=== PATIENT | female | born 1955 | race Caucasian/White ===

== ENCOUNTER 2019-10-30 01:45 | Emergency (ER) | payer OTHER, SELFPAY ==
[2019-10-30 01:46] VITALS: BP 190/85; PULSE 110; RESP 16; TEMP 36.4; O2SAT 100
[2019-10-30 02:15] LABS: Basophils Absolute Auto 0.1 K/mm3 (0.0-0.1); Basophils Percent Auto 0.5 % (0.2-1.2); Eosinophils Absolute Auto 0.2 K/mm3 (0-0.3); Eosinophils Percent Auto 1.8 % (0-4.4); Hematocrit 50.1 % (37.0-47.0); Hemoglobin 16.4 g/dL (12.0-15.0); Immature Granulocyte Absolute 0.26 K/mm3 (0.00-0.031); Lymphocytes Absolute Auto 2.43 K/mm3 (0.9-3.2); Mean Corpuscular HGB Conc 32.7 g/dl (32-36); Mean Corpuscular Volume 97.7 fl (80-100); Mean Platelet Volume 11.3 fl (7.4-10.4); Monocytes Absolute Auto 0.7 K/mm3 (0.1-0.6); Monocytes Percent Auto 5.8 % (2.6-8.5); Neutrophils Absolute Auto 9.1 K/mm3 (1.3-6.7); Neutrophils Percent Auto 70.9 % (45.5-73.1); Platelet Count Result 260 k/mm3 (150-375); Red Blood Count 5.13 M/mm3 (4.2-5.4); Red Cell Distribution Width 16.4 % (11.5-14.5); White Blood Count 12.8 K/mm3 (4.5-10.0)
[2019-10-30 02:29] LABS: Add Urine Microscopic? YES; Appearance Urine Clear (Clear); Bilirubin Urine Negative (Negative); Blood Urine Negative (Negative); Color Urine Yellow (Yellow); Glucose Urine UA Negative (Negative); Ketones Urine Negative (Negative); Leukocyte Esterase Ur Trace LEU/UL (Negative); Mucus Urine Rare /lpf; Nitrate Urine Negative (Negative); Protein Urine Negative (Negative); RBC Urine 0-2 /hpf (0-2); Specific Grav Ur 1.018 (1.001-1.035); Squamous Epithelial Cell Urine Occasional /hpf (Few); Urobilinogen Urine Negative mg/dL (<2.0); WBC Urine 0-3 /hpf
[2019-10-30 02:31] LABS: Anion Gap 8 mmol/L (8-16); Blood Urea Nitrogen 19 mg/dL (7-17); Calcium 9.7 mg/dL (8.4-10.2); Carbon Dioxide 28 mmol/L (22-30); Chloride 103 mmol/L (98-107); Estimated Glomerular Filt Rate > 60; Glucose 111 mg/dL (65-105); Sodium 139 mmol/L (137-145)
[2019-10-30 03:18] VITALS: BP 156/79; PULSE 94; RESP 19; O2SAT 95
--- NOTE | 2019-10-30 03:49 | ED.GENADULT ---
HPI - General Adult General Chief complaint: Abdominal Pain Stated complaint: low back pain Time Seen by Provider: 10/30/19 02:23 History of Present Illness HPI narrative: Patient is a 63-year-old female who presents ER with some pain in her right lower chest wall/upper abdomen. Ongoing for 3 days worsening today. No fevers or chills or sweats. No radiation. Worse with twisting. Has not tried any pain medication. She is without any urinary frequency or urgency. She has had no nausea or vomiting. No known injury. Related Data Home Medications Medication Instructions Recorded Confirmed amlodipine 5 mg PO DAILY 10/30/19 10/30/19 atorvastatin 10 mg PO QPM 10/30/19 10/30/19 bupropion HCl 150 mg PO DAILY 10/30/19 10/30/19 losartan 100 mg PO DAILY 10/30/19 10/30/19 Allergies Allergy/AdvReac Type Severity Reaction Status Date / Time adhesive tape Allergy Mild TRANSPORE Verified 06/26/19 10:47 TAPE lisinopril Allergy Unknown Verified 06/26/19 10:47 procaine Allergy Unknown resistant Verified 06/26/19 10:47 Review of Systems Constitutional: Constitutional: Denies chills and Denies fever(s) Cardiovascular: Cardiovascular: Denies chest pain and Denies radiating jaw, neck or arm pain Respiratory: Respiratory: Denies cough and Denies dyspnea Gastrointestinal: Gastrointestinal: Reports abdominal pain, Denies nausea and Denies vomiting Musculoskeletal: Musculoskeletal: Denies muscle cramps PMFSH Past Medical History Medical History (Updated 10/30/19 @ 03:53 by Manpreet Gary MD) Hypertension Surgical History Surgical History (Updated 10/30/19 @ 03:51 by Manpreet Gary MD) No pertinent past surgical history Social History Social History (System 06/26/19 @ 10:47 by Mauro Waddell) Smoking status: Heavy tobacco smoker Alcohol intake: current Exam Narrative: Exam Narrative: GENERAL: Well-appearing, well-nourished, and in no acute distress. HEAD: Normocephalic, atraumatic. CHEST: Clear to auscultation. No respiratory distress. TTP to right lateral/lower chest wall. HEART: Regular rate and rhythm. Normal peripheral pulses. ABDOMEN: Soft, nontender, nondistended. EXTREMITIES: Normal range of motion. No edema. NEURO: Alert and oriented x3. PSYCH: Normal mood and affect. Course Course Emergency Course: Pain resolved with [place]is. Informed results. Discharge home. Vital Signs Vital signs: Vital Signs Temperature 97.6 F 10/30/19 01:46 Pulse Rate 110 H 10/30/19 01:46 Respiratory Rate 16 10/30/19 01:46 Blood Pressure 190/85 H 10/30/19 01:46 Pulse Oximetry 100 10/30/19 01:46 Temperature 97.6 F 10/30/19 01:46 Pulse Rate 94 10/30/19 03:18 Respiratory Rate 19 10/30/19 03:18 Blood Pressure 156/79 H 10/30/19 03:18 Pulse Oximetry 95 10/30/19 03:18 Medical Decision Making Vital Signs Vital Signs: Vital Signs Temperature 97.6 F 10/30/19 01:46 Pulse Rate 110 H 10/30/19 01:46 Respiratory Rate 16 10/30/19 01:46 Blood Pressure 190/85 H 10/30/19 01:46 Pulse Oximetry 100 10/30/19 01:46 Temperature 97.6 F 10/30/19 01:46 Pulse Rate 94 10/30/19 03:18 Respiratory Rate 19 10/30/19 03:18 Blood Pressure 156/79 H 10/30/19 03:18 Pulse Oximetry 95 10/30/19 03:18 Lab Data Result diagrams: 10/30/19 01:56 10/30/19 01:56 Labs: Lab Results 10/30/19 10/30/19 10/30/19 Range/Units 01:56 01:56 02:09 WBC 12.8 H (4.5-10.0) K/mm3 RBC 5.13 (4.2-5.4) M/mm3 Hgb 16.4 H (12.0-15.0) g/dL Hct 50.1 H (37.0-47.0) % MCV 97.7 (80-100) fl MCH 32.0 (26-34) pg MCHC 32.7 (32-36) g/dl RDW 16.4 H (11.5-14.5) % Plt Count 260 (150-375) k/mm3 MPV 11.3 H (7.4-10.4) fl Immature Gran % (Auto) 2.0 H (0-0.5) % Neut % (Auto) 70.9 (45.5-73.1) % Lymph % (Auto) 19.0 (18.3-44.2) % Cat[place] % (Auto) 5.8 (2.6-8.5) % Eos % (Auto) 1.8 (0-4.4) % Baso % (Auto) 0.5
[2019-10-30 03:55] VITALS: BP 144/76; PULSE 88; RESP 18; O2SAT 95
[2019-10-30 03:56] VITALS: BP 144/76; PULSE 89; RESP 19; TEMP 36.3; O2SAT 95
== END 2019-10-30 04:01 | disposition home or self-care (01) ==
PROVIDERS: Emergency Provider Emergency Medicine; PCP Student in an Organized Health Care Education/Training Program
DX: S29.011A Strain of muscle and tendon of front wall of thorax, initial encounter (principal); X58.XXXA Exposure to other specified factors, initial encounter
CPT/HCPCS: 36415; 80048; 81001; 85025; 99283; A9270

== ENCOUNTER 2021-11-29 17:16 | Emergency (ER) | payer OTHER, SELFPAY ==
--- NOTE | 2021-11-29 17:19 | ED.URI ---
HPI - URI/Sore Throat General Chief Complaint: Upper Respiratory Infection Stated Complaint: uri Time Seen by Provider: 11/29/21 17:19 Source: patient Mode of arrival: ambulatory Limitations: no limitations History of Present Illness HPI Narrative: Ms. Guidry is a 66-year-old female patient presenting to the clinic today with complaints of headache, nasal congestion and sinus pressure. She reports this is been ongoing for 3 to 4 days. States that she has been taking Sudafed for her symptoms and this is making her blood pressure higher but is not seeming to help the pressure. She reports she is blowing out clear nasal drainage. She denies any fever or chills. She denies any known exposure to anybody with COVID, flu, or strep. MD elicited complaint: sore throat and nasal congestion Related Data Home Medications Medication Instructions Recorded Confirmed amlodipine 5 mg tablet 5 mg PO DAILY 10/30/19 11/29/21 atorvastatin 10 mg tablet 10 mg PO QPM 10/30/19 11/29/21 bupropion HCl 150 mg 24 hr tablet, 150 mg PO DAILY 10/30/19 11/29/21 extended release losartan 100 mg tablet 100 mg PO DAILY 10/30/19 11/29/21 albuterol sulfate 90 mcg/actuation 2 puff inhalation DIRECTED 11/29/21 11/29/21 aerosol inhaler Allergies Allergy/AdvReac Type Severity Reaction Status Date / Time adhesive tape Allergy Mild TRANSPORE Verified 11/29/21 17:38 TAPE lisinopril Allergy Unknown Other Verified 11/29/21 17:38 procaine Allergy Unknown resistant Verified 11/29/21 17:38 Review of Systems Review of Systems: Pertinent positives per HPI. Patient denies any fever, chills, rash, visual changes, dizziness, cough, sore throat, shortness of breath, chest pain, palpitations, nausea, vomiting, diarrhea, constipation, abdominal pain, or any urinary issues. [facility] Past Medical History Medical History Hypertension Surgical History Surgical History No pertinent past surgical history Social History Social History Smoking status: Heavy tobacco smoker Alcohol intake: current Comments At the time of my signature, I reviewed and agree with the nursing past medical, surgical, social, and family history. There is no relevant family history pertinent to the patient complaint. Exam Narrative: General: Well-developed, well nourished, in no apparent distress Head: Normocephalic, atraumatic Eyes: Pupils equally round and reactive to light bilaterally, EOM intact, sclera and conjunctive clear, no discharge, lids normal Ears: TMs intact and clear, ear canals clear, no drainage, grossly hearing normal. Nose: Nares patent, clear nasal discharge, moderate inflammation, maxillary and frontal sinus tenderness. Mouth: Oral pharynx without lesions or masses, good dentition, MMM. Postnasal drip Neck: Supple, trachea midline, no enlargement of anterior or posterior cervical nodes, no thyroid masses or goiter palpable. Cardio: Regular rate and rhythm, s1 and s2 normal, no murmur appreciated. Resp: Clear to auscultation bilaterally, no rhonchi, rales, wheezing or rubs Course Course Emergency Course: Portions of this record may have been created with voice recognition software. Level of Care: Express Care Visit Vital Signs Vital signs: Vital signs reviewed MDM - URI/Sore Throat MDM Narrative Medical decision making narrative: At the time of visit patient is resting comfortably on the exam table. COVID swab was obtained and was negative in the clinic. I suspect the patient has upper respiratory infection/sinusitis. Prescription for prednisone was sent to the pharmacy and supportive measures were discussed with the patient she voiced understanding of discharge instructions and agrees to treatment plan. She is to discontinue the Sudafed use. Differential Diagnosi
[2021-11-29 17:26] VITALS: BP 189/95; PULSE 114; RESP 16; TEMP 37.4; O2SAT 98
== END 2021-11-29 17:55 | disposition home or self-care (01) ==
PROVIDERS: Emergency Provider Nurse Practitioner Family; PCP Student in an Organized Health Care Education/Training Program
DX: J32.9 Chronic sinusitis, unspecified (principal); Z20.822 Contact with and (suspected) exposure to COVID-19; I10 Essential (primary) hypertension; F17.200 Nicotine dependence, unspecified, uncomplicated
CPT/HCPCS: 87426; 99213; C9803; G0463

== ENCOUNTER 2022-06-04 12:00 | Observation (INO) | payer OTHER, SELFPAY ==
[2022-06-04] VITALS (14 sets, daily range): BP systolic 130–182; BP diastolic 68–99; PULSE 92–114; RESP 17–20; TEMP 36.8–37.1; O2SAT 87–98; BMI 37.4
--- NOTE | ~2022-06-04 | XR_ITS ---
EXAMINATION: XR chest 2V DATE: 06/04/2022 12:35 INDICATION: Palpitations. TECHNIQUE: Frontal and lateral views of the chest were obtained. COMPARISON: Chest 2 views 03/26/2018, chest CT 04/24/2011 FINDINGS: The chest demonstrates clear lungs without pneumonia, pleural effusion, or pneumothorax. Th e heart size is normal. Calcified mediastinal lymph nodes are consistent with old granulomatous disea se. IMPRESSION: 1. No acute cardiopulmonary disease. Reviewed, dictated and finalized at location A.
--- NOTE | ~2022-06-04 | CT_ITS ---
EXAMINATION: CTA chest PE protocol DATE: 06/04/2022 14:03 INDICATION: Shortness of breath. TECHNIQUE: Computed tomography angiography (CTA) of the chest was performed with 100 mL Omnipaque-350 intravenous contrast timed to evaluate the pulmonary arteries. Coronal maximum intensity projection 3D-reconstructions were created by the technologist. Automated exposure control and iterative reconst ruction technique were employed. The dose-length product was 779.43 mGy-cm. COMPARISON: Chest CT 04/24/2011 FINDINGS: There is mild emphysema. There is mild atelectasis in right middle lobe and lingula. Calcif ied left lung nodules and calcified left hilar and mediastinal lymph nodes are consistent with old gr anulomatous disease. No pleural effusion. The heart size is normal. No pericardial effusion. Calcific ations in the spleen are consistent with old granulomatous disease. There is mild thoracic spondylosi s. IMPRESSION: 1. No pulmonary embolus. Sensitivity is mildly decreased by motion artifact. 2. Mild emphysema. Reviewed, dictated and finalized at location A.
--- NOTE | 2022-06-04 12:03 | ECG_ITS ---
Measurements Intervals [place] Rate: 112 P: 67 MN: 162 QRS: -35 QRSD: 88 T: 73 QT: 315 QTc: 430 Interpretive Statements SINUS TACHYCARDIA POSSIBLE RIGHT ATRIAL ENLARGEMENT [0.25mV P WAVE] MARKED LEFT AXIS DEVIATION [QRS AXIS < -30] NO PREVIOUS ECG AVAILABLE FOR COMPARISON Electronically Signed On 06-05-2022 14:56:05 CDT by Renato Mccormick M.D.
[2022-06-04] MEDS: ASPIRIN 81 MG CHEWABLE TABLET 324 MG PO (13:04)
--- NOTE | 2022-06-04 13:23 | PC.NURSE ---
Pt placed on 2 L NC O2 due to 88% on room air.
[2022-06-04 13:26] LABS: Basophils Absolute Auto 0.1 K/mm3 (0.0-0.1); Basophils Percent Auto 0.5 % (0.2-1.2); Eosinophils Absolute Auto 0.1 K/mm3 (0-0.3); Eosinophils Percent Auto 0.6 % (0-4.4); Hematocrit 53.1 % (37.0-47.0); Hemoglobin 17.2 g/dL (12.0-15.0); Immature Granulocyte Absolute 0.19 K/mm3 (0.00-0.031); Immature Granulocyte Percent A 1.1 % (0-0.5); Lymphocytes Absolute Auto 2.78 K/mm3 (0.9-3.2); Lymphocytes Percent Auto 15.7 % (18.3-44.2); Mean Corpuscular HGB Conc 32.4 g/dl (32-36); Mean Corpuscular Hemoglobin 31.5 pg (26-34); Mean Corpuscular Volume 97.3 fl (80-100); Mean Platelet Volume 11.2 fl (7.4-10.4); Monocytes Absolute Auto 0.9 K/mm3 (0.1-0.6); Monocytes Percent Auto 4.8 % (2.6-8.5); Neutrophils Absolute Auto 13.7 K/mm3 (1.3-6.7); Neutrophils Percent Auto 77.3 % (45.5-73.1); Platelet Count Result 285 k/mm3 (150-375); Red Blood Count 5.46 M/mm3 (4.2-5.4); Red Cell Distribution Width 14.9 % (11.5-14.5); White Blood Count 17.7 K/mm3 (4.5-10.0)
[2022-06-04 13:33] LABS: Partial Thromboplastin Time 25.4 SECONDS (22.3-36.8); Prothrombin Time 12.7 Seconds (11.1-14.7)
[2022-06-04 13:36] LABS: Alanine Aminotransferase 44 U/L (6-35); Albumin Level 4.5 g/dL (3.5-5.1); Alkaline Phosphatase 88 U/L (38-126); Anion Gap 5 mmol/L (8-16); Aspartate Amino Transferase 27 U/L (14-36); Bilirubin,Total 0.5 mg/dL (0.2-1.3); Blood Urea Nitrogen 25 mg/dL (7-17); Calcium 9.6 mg/dL (8.4-10.2); Carbon Dioxide 36 mmol/L (22-30); Chloride 98 mmol/L (98-107); Estimated CRCL calculation 80 ml/min; Estimated Glomerular Filt Rate > 60; Glucose 163 mg/dL (65-110); Lipase 70 U/L (23-300); Potassium 3.7 mmol/L (3.4-5.0); Sodium 139 mmol/L (137-145)
--- NOTE | 2022-06-04 13:41 | ED.ARRPALP ---
HPI - Arrhythmia/Palpitations General Chief Complaint: Arrhythmia/Palpitations Stated Complaint: palpitations Time Seen by Provider: 06/04/22 13:40 Source: patient and family Mode of arrival: ambulatory Limitations: no limitations History of Present Illness HPI narrative: Patient is 66 years old white female presented to the ED with shortness of breath on exertion and palpitation, feeling her heart is racing over the last 48 hours. Patient is a heavy smoker for over 40 years. Patient denies increased the frequency of coughing and or THE amount of sputum lately.. She denies any fever, chills, nausea, vomiting. Patient denies any chest pain or leg pain Related Data Home Medications Medication Instructions Recorded Confirmed amlodipine 5 mg tablet 5 mg PO DAILY 10/30/19 11/29/21 atorvastatin 10 mg tablet 10 mg PO QPM 10/30/19 11/29/21 bupropion HCl 150 mg 24 hr tablet, 150 mg PO DAILY 10/30/19 11/29/21 extended release losartan 100 mg tablet 100 mg PO DAILY 10/30/19 11/29/21 albuterol sulfate 90 mcg/actuation 2 puff inhalation DIRECTED 11/29/21 11/29/21 aerosol inhaler Allergies Allergy/AdvReac Type Severity Reaction Status Date / Time adhesive tape Allergy Mild TRANSPORE Verified 06/04/22 13:01 TAPE lisinopril Allergy Unknown Other Verified 06/04/22 13:01 procaine Allergy Unknown resistant Verified 06/04/22 13:01 Review of Systems Review of Systems: All systems reviewed & are unremarkable except as noted in HPI and below PMFSH Past Medical History Medical History Hypertension Surgical History Surgical History No pertinent past surgical history Social History Social History Smoking status: Heavy tobacco smoker Alcohol intake: current Exam Narrative: General appearance: Well-developed, well-nourished, nasal cannula on, 2 L. Skin: Normal color Head: Normocephalic, nontraumatic Eyes: Clear conjunctiva ENT: Oropharynx normal, ears normal, nose normal Neck: Supple, nontender Chest and respiratory: Marked diminution of air entry bilaterally, expiratory wheezing Heart: Regular rate/rhythm Abdomen: Soft, nontender, no organomegaly, quiet bowel sounds Vascular: Normal peripheral pulses, normal capillary refill. Musculoskeletal: Normal range of motion, nontender back Neurologic: Alert and oriented ?3, MEDICAL ASSOCIATE is normal as tested, no gross motor deficit Course Vital Signs Vital signs: Vital Signs Temperature 37.1 C 06/04/22 12:45 Pulse Rate 114 H 06/04/22 12:45 Respiratory Rate 18 06/04/22 12:45 Blood Pressure 182/88 H 06/04/22 12:45 Pulse Oximetry 87 L 06/04/22 12:45 Oxygen Delivery Room Air 06/04/22 12:45 Temperature 37.1 C 06/04/22 12:45 Pulse Rate 112 H 06/04/22 13:03 Respiratory Rate 20 06/04/22 13:02 Blood Pressure 136/91 H 06/04/22 13:02 Pulse Oximetry 88 L 06/04/22 13:23 Oxygen Delivery Room Air 06/04/22 13:02 MDM - Arrhythmia/Palpitations Lab Data 06/04/22 13:06 06/04/22 13:06 Labs: Lab Results 06/04/22 06/04/22 06/04/22 Range/Units 13:06 13:06 13:06 WBC 17.7 H (4.5-10.0) K/mm3 RBC 5.46 H (4.2-5.4) M/mm3 Hgb 17.2 H (12.0-15.0) g/dL Hct 53.1 H (37.0-47.0) % MCV 97.3 (80-100) fl MCH 31.5 (26-34) pg MCHC 32.4 (32-36) g/dl RDW 14.9 H (11.5-14.5) % Plt Count 285 (150-375) k/mm3 MPV 11.2 H (7.4-10.4) fl Immature Gran % (Auto) 1.1 H (0-0.5) % Neut % (Auto) 77.3 H (45.5-73.1) % Lymph % (Auto) 1
[2022-06-04 13:48] LABS: Troponin I < 0.012 ng/mL (0.000-0.034)
--- NOTE | 2022-06-04 13:55 | PC.NURSE ---
Pt to CT scan via stretcher at this time.
[2022-06-04 14:08] LABS: NT Pro B Type Natriuretic Pept 40 pg/mL (19.9-100)
[2022-06-04 14:19] LABS: Alveolar/Arterial O2 Gradient 77.7 mmHg; Base Excess ABG 4.2 mEq/l (+/-2.0); Fractional Inspired Oxygen 28 %; HCO3 ABG 29.4 mEq/l (22.0-26.0); Oxygen Saturation ABG 94.1 % (95.0-100.0); PCO2 ABG 45.3 mmHg (35.0-45.0); PO2 ABG 68.5 mmHg (80.0-100.0); PO2 FiO2 Ratio Arterial Blood 2.45 %; Total Hemoglobin 17.1 g/dL (12.0-18.0)
[2022-06-04 14:21] LABS: Device NASAL CANNULA; Modified Allen's Test Pass; Oxyhemoglobin 87.3 % THb (90.0-100.0); Site Drawn LEFT RADIAL
[2022-06-04] MEDS: methylPREDNISolone SOD SUCC 125 MG VIAL IV PUSH (14:31)
[2022-06-04] MEDS: IPRATROPIUM BR 0.02% INH SOLN 0.5 MG/2.5 ML VIAL INHALATION ×2 (14:49→19:55)
[2022-06-04] MEDS: ALBUTEROL SULFATE NEB 2.5 MG/3 ML INH INHALATION (14:49)
--- NOTE | 2022-06-04 15:21 | PM.IMHP ---
H&P: HPI History of Present Illness Date/Time: 06/04/22 15:21 Chief Complaint: Arrhythmia palpitations Narrative: This is a 66-year-old female patient who came to the emergency room with shortness of breath on exertion and palpitations. The patient stated that she felt like her heart was racing for the last 48 hours. The patient has been a heavy smoker for the last 40 years. She has not been diagnosed with COPD and has not had a pulmonary function test. The patient does not wear oxygen at home. The patient is attempting to cut down on cigarettes. She went from 1 pack a cigarettes to half a pack a cigarettes and has been coughing more lately. She has had a thick green sputum. She denies any fever chills. Her O2 saturation was 88%. The patient was placed on oxygen at 2 L per nasal cannula. Her white count was noted to be 17.7. H&H is 17.2 and 33.1. Neutrophil percentage 77.3. Her Oxy hemoglobin is 87.3. First troponin is nonreactive. Chest x-ray was read as no acute cardiopulmonary disease. CTA was read as no pulmonary embolism. Sensitivity is mildly decreased by motion artifact. Mild emphysema. Chest x-ray no acute cardiopulmonary disease. The patient is afebrile. The patient was given aspirin, Solu-Medrol, and nebulizer treatments. The patient is being admitted to observation status on the date of service of 06/04/2022. Review of Systems Review of Systems: All systems reviewed & are unremarkable except as noted in HPI and below Constitutional: Constitutional: Reports as per HPI and Reports no additional constitutional complaints Eyes: Eyes: Reports as per HPI and Reports no additional eye complaints ENT: Reports system reviewed and no additional complaints, except as documented and Reports Normal hearing present Cardiovascular: Cardiovascular: Reports no additional cardiovascular complaints Respiratory: Respiratory: Reports no additional respiratory complaints and Reports no additional respiratory complaints Gastrointestinal: Gastrointestinal: Reports as per HPI and Reports no additional gastrointestinal complaints Musculoskeletal: Musculoskeletal: Reports no additional musculoskeletal complaints Integumentary/Breasts: Skin/Breast: Reports system reviewed and no additional complaints, except as docu and Reports as per HPI Neurologic: Reports system reviewed and no additional complaints, except as documented, Reports as per HPI and Reports Normal hearing present Psychiatric: Psychiatric: Reports no additional psychiatric complaints and Reports as per HPI Endocrine: Endocrine: Reports no additional endocrine complaints Hematologic/Lymphatic: Hematologic/Lymphatic: Reports no additional hematologic/lymphatic complaints Allergic/Immunologic: Allergic/Immunologic: Reports no additional allergic/immunologic complaints [facility] Past Medical History Medical History (Updated 06/04/22 @ 18:42 by Emili Amaya NP) Emphysema lung Hyperlipidemia Hypertension Hypolipidemia Hypoxia Tobacco abuse Surgical History Surgical History (Updated 06/04/22 @ 18:40 by Emili Amaya NP) H/O section times 2 H/O: hysterectomy S/P right rotator cuff repair Family History Family History (Updated 06/04/22 @ 18:35 by Emili Amaya NP) Father Cancer Mother Cancer Sibling Cancer Social History Social History (Updated 06/04/22 @ 18:36 by Emili Amaya NP) Social History: 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 She told me that she smoked 4-5 cigarettes a day, however she told the nurse that she is down to half a pack a cigarettes a day. She has 2 children. Her is the durable power exercise physiologist certified for healthcare. Code status full code Smoking packs per day: 0.5 Smoking cigarettes per day: 10.0 Years smoked: 40 Smoking pack-years: 20.00 Smoking status: Current every day smoker Tobacco type: cigarettes Alcohol intake: current Drinks per week: 5 Substance use: nev
[2022-06-04 15:41] LABS: Troponin I < 0.012 ng/mL (0.000-0.034)
--- NOTE | 2022-06-04 16:59 | ADMGEN ---
This patient, Jen Guidry, was admitted to Medical Room 243-. Patient and family oriented to hospital policies and general routines including ID bracelet, bed and alarms, visiting hours, pain management, procedures, bathroom and other care routines, personal items, smoking policy, room service/diet, and visiting hours. Information on how to activate the Rapid Response Team has been discussed. Patient and family are encouraged to report perceived risks to care and to ask questions if they do not understand what they are told or what they should do.
[2022-06-04 18:42] LABS: Troponin I 0.017 ng/mL (0.000-0.034)
[2022-06-04] MEDS: methylPREDNISolone SOD SUCC 125 MG VIAL 60 MG IV PUSH (19:02)
[2022-06-04] MEDS: LEVALBUTEROL NEB 1.25 MG/3 ML INHALATION (19:55)
[2022-06-04 20:33] LABS: Influenza A QL RT-PCR Negative (Negative); Influenza B QL RT-PCR Negative (Negative); RSV RNA, RT-PCR Negative (Negative); SARS-CoV-2 RNA PCR Negative
[2022-06-05] VITALS (18 sets, daily range): BP systolic 137–155; BP diastolic 53–79; PULSE 86–115; RESP 14–20; TEMP 36.5–37.1; O2SAT 90–96
[2022-06-05] MEDS: methylPREDNISolone SOD SUCC 125 MG VIAL 60 MG IV PUSH ×4 (00:40→21:24)
[2022-06-05] MEDS: LEVALBUTEROL NEB 1.25 MG/3 ML INHALATION ×4 (02:36→20:36)
[2022-06-05] MEDS: IPRATROPIUM BR 0.02% INH SOLN 0.5 MG/2.5 ML VIAL INHALATION ×4 (02:36→20:35)
[2022-06-05 06:14] LABS: Basophils Percent Auto 0.1 % (0.2-1.2); Hematocrit 49.1 % (37.0-47.0); Hemoglobin 16.1 g/dL (12.0-15.0); Immature Granulocyte Absolute 0.23 K/mm3 (0.00-0.031); Immature Granulocyte Percent A 1.6 % (0-0.5); Lymphocytes Absolute Auto 0.75 K/mm3 (0.9-3.2); Lymphocytes Percent Auto 5.3 % (18.3-44.2); Mean Corpuscular HGB Conc 32.8 g/dl (32-36); Mean Corpuscular Hemoglobin 31.8 pg (26-34); Mean Platelet Volume 11.2 fl (7.4-10.4); Monocytes Absolute Auto 0.1 K/mm3 (0.1-0.6); Neutrophils Absolute Auto 12.9 K/mm3 (1.3-6.7); Platelet Count Result 231 k/mm3 (150-375); Red Blood Count 5.06 M/mm3 (4.2-5.4); Red Cell Distribution Width 14.7 % (11.5-14.5); White Blood Count 14.1 K/mm3 (4.5-10.0)
[2022-06-05 06:28] LABS: Alanine Aminotransferase 39 U/L (6-35); Albumin Level 4.2 g/dL (3.5-5.1); Alkaline Phosphatase 76 U/L (38-126); Anion Gap 8 mmol/L (8-16); Aspartate Amino Transferase 23 U/L (14-36); Bilirubin,Total 0.4 mg/dL (0.2-1.3); Blood Urea Nitrogen 18 mg/dL (7-17); Calcium 9.4 mg/dL (8.4-10.2); Carbon Dioxide 28 mmol/L (22-30); Chloride 102 mmol/L (98-107); Estimated CRCL calculation 95 ml/min; Estimated Glomerular Filt Rate > 60; Glucose 184 mg/dL (65-110); Magnesium 2.2 mg/dL (1.6-2.3); Potassium 3.9 mmol/L (3.4-5.0); Sodium 138 mmol/L (137-145)
[2022-06-05] MEDS: ENOXAPARIN 40 MG/0.4 ML SYRINGE SUB-Q (08:33)
[2022-06-05] MEDS: amLODIPine BESYLATE 5 MG TABLET PO (08:34)
[2022-06-05] MEDS: LOSARTAN POTASSIUM 100 MG TABLET PO (08:34)
[2022-06-05 09:11] LABS: Reflex Lactic Acid Yes or No Add Lactic
[2022-06-05 10:52] LABS: Lactic Acid 2.9 mmol/L (0.7-2.0)
--- NOTE | 2022-06-05 12:54 | PM.IMPN ---
Progress Note: A&P Assessment and Plan (1) COPD exacerbation: Code(s): J44.1 - Chronic obstructive pulmonary disease with (acute) exacerbation Status: Acute Assessment and Plan: Patient presented with diffuse wheezing, felt to be consistent with COPD exacerbation. CXR and CTA with no acute cardiopulmonary disease. Continue IV Solu-Medrol 60 mg, weaned to q8h. Continue scheduled bronchodilators. Continue p.o. azithromycin given sputum changes. Continue supportive care. She will need to follow-up with pulmonology as an outpatient for PFTs (2) Hypoxia: Code(s): R09.02 - Hypoxemia Status: Acute Assessment and Plan: Secondary to above. O2 sats 88% on presentation. She has required up to 2 L supplemental O2. Currently on 1 L supplemental oxygen. Wean as tolerated (3) Hypertension: Code(s): I10 - Essential (primary) hypertension Status: Acute Assessment and Plan: Blood pressures are stable. Continue with amlodipine and losartan (4) Tobacco abuse: Code(s): Z72.0 - Tobacco use Status: Acute Assessment and Plan: Patient reports she has cut down to half a pack a day. Continue to educated on need for smoking cessation. Continue nicotine patch during admission (5) Hyperlipidemia: Code(s): E78.5 - Hyperlipidemia, unspecified Status: Acute Assessment and Plan: Continue with atorvastatin Plan Lactic acid levels elevated, no acidosis and normal anion gap. Continue to monitor Subjective Date/time seen: 06/05/22 12:54 Interval history: Date of service: 06/05/2022 Jen gongora is a 66-year-old female with a history of hypertension, hyperlipidemia, tobacco abuse, and emphysema who is seen in follow-up for COPD exacerbation. Patient states that she has been short of breath for 3 days and has had a sensation of her heart racing. States that both of these symptoms have improved at this time. States that her heart racing resolved at this morning after getting a breathing treatment she noticed some increase in this again. She also notes some mild shakiness after having a breathing treatment. She denies dyspnea on exertion. She denies wheezing. She does have a cough that is nonproductive. She feels that she has chest congestion that she wants to cough up but is not able to. She denies fevers or chills. No chest pain. Review of Systems Review of Systems: All systems reviewed & are unremarkable except as noted in HPI and below Exam Narrative: General: Well-nourished, well-appearing 66-year-old female, sitting up in bed, comfortable, NARD Neuro: awake, alert and oriented x4, speech clear, no focal neuro deficits noted HEENMT: normocephalic, atraumatic, EOMI, sclerae anicteric Respiratory: clear to auscultation bilaterally without crackles, rhonchi, or wheezes, nonlabored breathing Cardio: Tachycardic, regular rhythm with S1-S2 Abdomen: nondistended, normoactive bowel sounds, soft, nontender to palpation Extremities: no edema, erythema, or tenderness to palpation, DP pulses 2+ bilaterally Skin: no rashes or lesions, warm and dry Psych: appropriate mood and affect, judgment and insight intact Objective Data Vital Signs Vital Signs: Vital Signs - 24 hr 06/04/22 13:02 06/04/22 13:03 06/04/22 13:23 Temperature Pulse Rate 112 H 112 H Respiratory Rate 20 Blood Pressure 136/91 H Pulse Oximetry 91 88 L Oxygen Delivery Room Air Oxygen Flow Rate Fraction of Inspired Oxygen 06/04/22 14:49 06/04/22 14:58 06/04/22 15:01 Temperature Pulse Rate 93 93 95 Respiratory Rate 20 17 18 Blood Pressure 137/85 Pulse Oximetry 98 Oxygen Delivery Oxygen Flow Rate Fraction of Inspired Oxygen 06/04/22 15:22 06/04/22 15:57 06/04/22 16:53 Temperature Pulse Rate 94 94 Respiratory Rate 18 19 Blood Pressure 137/85 130/99 H Pulse Oximetry 94 93 88 L Oxygen Delivery Nasal Ca
[2022-06-05] MEDS: ATORVASTATIN 10 MG TABLET PO (18:11)
[2022-06-05] MEDS: guaiFENesin 12 HR 600 MG TABCR PO (21:23)
[2022-06-06] VITALS (18 sets, daily range): BP systolic 121–150; BP diastolic 67–83; PULSE 82–99; RESP 14–20; TEMP 36.6; O2SAT 91–96
[2022-06-06] MEDS: IPRATROPIUM BR 0.02% INH SOLN 0.5 MG/2.5 ML VIAL INHALATION ×4 (03:00→19:47)
[2022-06-06] MEDS: LEVALBUTEROL NEB 1.25 MG/3 ML INHALATION ×4 (03:00→19:47)
[2022-06-06 05:46] LABS: Hematocrit 47.8 % (37.0-47.0); Hemoglobin 15.3 g/dL (12.0-15.0); Mean Corpuscular Hemoglobin 31.2 pg (26-34); Mean Corpuscular Volume 97.6 fl (80-100); Mean Platelet Volume 11.5 fl (7.4-10.4); Platelet Count Result 218 k/mm3 (150-375); Red Cell Distribution Width 14.9 % (11.5-14.5); White Blood Count 21.8 K/mm3 (4.5-10.0)
[2022-06-06] MEDS: methylPREDNISolone SOD SUCC 125 MG VIAL 60 MG IV PUSH ×3 (05:47→17:37)
[2022-06-06 05:55] LABS: Alanine Aminotransferase 34 U/L (6-35); Alkaline Phosphatase 76 U/L (38-126); Anion Gap 3 mmol/L (8-16); Aspartate Amino Transferase 22 U/L (14-36); Bilirubin,Total 0.4 mg/dL (0.2-1.3); Blood Urea Nitrogen 22 mg/dL (7-17); Calcium 9.2 mg/dL (8.4-10.2); Carbon Dioxide 34 mmol/L (22-30); Chloride 100 mmol/L (98-107); Estimated CRCL calculation 81 ml/min; Estimated Glomerular Filt Rate > 60; Glucose 156 mg/dL (65-110); Sodium 137 mmol/L (137-145)
[2022-06-06] MEDS: amLODIPine BESYLATE 5 MG TABLET PO (08:34)
[2022-06-06] MEDS: guaiFENesin 12 HR 600 MG TABCR PO ×2 (08:37→20:35)
[2022-06-06] MEDS: LOSARTAN POTASSIUM 100 MG TABLET PO (08:37)
[2022-06-06] MEDS: ENOXAPARIN 40 MG/0.4 ML SYRINGE SUB-Q (08:37)
[2022-06-06 10:33] LABS: Lactic Acid Reflex 3.3 mmol/L (0.7-2.0)
[2022-06-06 13:20] LABS: Reflex Lactic Acid Yes or No Add Lactic
--- NOTE | 2022-06-06 13:49 | PC.NURSE ---
On 06/06/22, the student, [Rachelle Galdamez], provided care and completed [facility] documentation on this patient. I have reviewed the student's documentation and agree with the findings.
[2022-06-06 14:04] LABS: Lactic Acid 2.5 mmol/L (0.7-2.0)
--- NOTE | 2022-06-06 15:38 | PM.IMPN ---
Progress Note: A&P Assessment and Plan (1) COPD exacerbation: Code(s): J44.1 - Chronic obstructive pulmonary disease with (acute) exacerbation Status: Acute Assessment and Plan: Patient presented with diffuse wheezing, felt to be consistent with COPD exacerbation. CXR and CTA with no acute cardiopulmonary disease. Continue IV Solu-Medrol 60 mg, wean to q12h. Leukocytosis secondary to steroids. continue scheduled bronchodilators. Continue p.o. azithromycin given sputum changes. Continue supportive care. She will need to follow-up with pulmonology as an outpatient for PFTs. Hopeful transition to p.o. prednisone tomorrow with discharge if continued improvement (2) Hypoxia: Code(s): R09.02 - Hypoxemia Status: Acute Assessment and Plan: Secondary to above. O2 sats 88% on presentation. She has required up to 2 L supplemental O2. Currently maintaining adequate O2 sats on room air. Continue to monitor O2. Will need home O2 eval prior to discharge. Goal sats 90% or above (3) Hypertension: Code(s): I10 - Essential (primary) hypertension Status: Acute Assessment and Plan: Blood pressures are stable. Continue with amlodipine and losartan (4) Tobacco abuse: Code(s): Z72.0 - Tobacco use Status: Acute Assessment and Plan: Patient reports she has cut down to half a pack a day. Continue to educate on need for smoking cessation. Continue nicotine patch during admission (5) Hyperlipidemia: Code(s): E78.5 - Hyperlipidemia, unspecified Status: Acute Assessment and Plan: Continue with atorvastatin Plan Lactic acid levels elevated, no acidosis and normal anion gap. May be related to breathing treatments. Down to 2.5 today. No need for further monitoring Subjective Date/time seen: 06/06/22 15:38 Interval history: Date of service: 06/05/2022 Jen gongora is a 66-year-old female with a history of hypertension, hyperlipidemia, tobacco abuse, and emphysema who is seen in follow-up for COPD exacerbation. She is feeling better today. Shortness of breath has improved. She continues to endorse cough. States she feels she has sputum in her chest that she cannot cough up. She has been using the Cornet valve in the incentive spirometer and feels that it is starting to help some. She denies wheezing. Still occasionally endorses feeling her heart racing after receiving breathing treatments. She has been able to get up and is tolerating activity. Review of Systems Review of Systems: All systems reviewed & are unremarkable except as noted in HPI and below Exam Narrative: General: Well-nourished, well-appearing 66-year-old female, sitting up in bed, comfortable, NARD Neuro: awake, alert and oriented x4, speech clear, no focal neuro deficits noted HEENMT: normocephalic, atraumatic, EOMI, sclerae anicteric Respiratory: clear to auscultation bilaterally without crackles, rhonchi, or wheezes, nonlabored breathing Cardio: Regular rate, regular rhythm with S1-S2 Abdomen: nondistended, normoactive bowel sounds, soft, nontender to palpation Extremities: no edema, erythema, or tenderness to palpation, DP pulses 2+ bilaterally Skin: no rashes or lesions, warm and dry Psych: appropriate mood and affect, judgment and insight intact Objective Data Vital Signs Vital Signs: Vital Signs - 24 hr 06/05/22 16:00 06/05/22 20:37 06/05/22 20:38 Temperature 98.8 F Pulse Rate 95 103 H Respiratory Rate 18 20 20 Blood Pressure 138/60 Pulse Oximetry 96 93 Oxygen Delivery Nasal Cannula Oxygen Flow Rate 2 06/05/22 20:49 06/05/22 20:00 06/05/22 20:55 Temperature 97.7 F Pulse Rate 105 H 89 Respiratory Rate 20 14 Blood Pressure 137/59 L Pulse Oximetry 93 90 Oxygen Delivery Nasal Cannula Oxygen Flow Rate 2 06/06/22 00:58 06/06/22 03:00 06/06/22 03:09 Temperature 97.8 F Pulse Rate 82 94 96 Respirato
[2022-06-06] MEDS: ATORVASTATIN 10 MG TABLET PO (17:36)
[2022-06-07] VITALS (14 sets, daily range): BP systolic 130–154; BP diastolic 62–72; PULSE 78–106; RESP 16–20; TEMP 36.6–36.8; O2SAT 86–93
[2022-06-07] MEDS: IPRATROPIUM BR 0.02% INH SOLN 0.5 MG/2.5 ML VIAL INHALATION ×3 (02:30→13:40)
[2022-06-07] MEDS: LEVALBUTEROL NEB 1.25 MG/3 ML INHALATION ×3 (02:30→13:41)
[2022-06-07] MEDS: methylPREDNISolone SOD SUCC 125 MG VIAL 60 MG IV PUSH (05:09)
[2022-06-07 05:27] LABS: Hemoglobin 14.8 g/dL (12.0-15.0); Mean Corpuscular HGB Conc 31.5 g/dl (32-36); Mean Corpuscular Hemoglobin 31.1 pg (26-34); Mean Corpuscular Volume 98.7 fl (80-100); Mean Platelet Volume 11.5 fl (7.4-10.4); Platelet Count Result 196 k/mm3 (150-375); Red Blood Count 4.76 M/mm3 (4.2-5.4); White Blood Count 17.4 K/mm3 (4.5-10.0)
[2022-06-07 05:42] LABS: Anion Gap 3 mmol/L (8-16); Blood Urea Nitrogen 27 mg/dL (7-17); Calcium 9.2 mg/dL (8.4-10.2); Carbon Dioxide 31 mmol/L (22-30); Chloride 103 mmol/L (98-107); Estimated CRCL calculation 95 ml/min; Estimated Glomerular Filt Rate > 60; Glucose 145 mg/dL (65-110); Potassium 4.4 mmol/L (3.4-5.0); Sodium 137 mmol/L (137-145)
[2022-06-07] MEDS: ENOXAPARIN 40 MG/0.4 ML SYRINGE SUB-Q (09:30)
[2022-06-07] MEDS: amLODIPine BESYLATE 5 MG TABLET PO (09:30)
[2022-06-07] MEDS: LOSARTAN POTASSIUM 100 MG TABLET PO (09:31)
[2022-06-07] MEDS: guaiFENesin 12 HR 600 MG TABCR PO (09:31)
--- NOTE | 2022-06-07 09:45 | HOMEO2EVAL ---
Evaluation was performed at [facility] Home Oxygen Evaluation RC: Home Oxygen (O2) Evaluation Start: 06/07/22 07:44 Freq: ONCE Status: Active Protocol: RPE Activity Type Activity Date Activity User E-sign Co-sign Detail Recorded Client Recorded Date Recorded By Document 06/07/22 09:15 [email or web address] [email or web address] 06/07/22 09:45 DJO Document 06/07/22 09:20 [email or web address] [email or web address] 06/07/22 09:45 DJO Document 06/07/22 09:25 [email or web address] [email or web address] 06/07/22 09:45 DJO Document 06/07/22 09:30 [email or web address] [email or web address] 06/07/22 09:45 DJO Document 06/07/22 09:45 [email or web address] [email or web address] 06/07/22 09:45 DJO 06/07/22 06/07/22 06/07/22 09:15 09:20 09:25 Home O2 Evaluation [Oxygen] -Test Phase Resting Exercise Exercise -Oxygen Delivery Room Air Room Air Nasal Cannula -Oxygen Flow Rate (L/min) 1 [Pulse Oximetry] -Pulse Oximetry (90-100 %) 92 86 L 88 L [Pulse Rate] -Pulse Rate (60-100 beats/min) 98 105 H 106 H [Evaluation] -Activity Tolerance [Exercise] -Ambulation Distance (feet) -Ambulation Distance (meters) [Charges] -Treatment Charges O2 Evaluation - Inpatient 06/07/22 06/07/22 09:30 09:45 Home O2 Evaluation [Oxygen] -Test Phase Exercise Resting -Oxygen Delivery Nasal Cannula Room Air -Oxygen Flow Rate (L/min) 2 [Pulse Oximetry] -Pulse Oximetry (90-100 %) 91 91 [Pulse Rate] -Pulse Rate (60-100 beats/min) 104 H 97 [Evaluation] -Activity Tolerance Good [Exercise] -Ambulation Distance (feet) 500 -Ambulation Distance (meters) 152.39 [Charges] -Treatment Charges
--- NOTE | 2022-06-07 11:34 | PCRCNOTE ---
[facility] [phone]
[2022-06-07] MEDS: AZITHROMYCIN 250 MG TABLET 500 MG PO (12:57)
--- NOTE | 2022-06-07 13:40 | PM.DS ---
DS: Admitting Diagnosis Discharge Date 06/07/2022 Admitting Diagnosis COPD exacerbation DS: Discharge Diagnosis Discharge Diagnosis (1) COPD exacerbation: Code(s): J44.1 - Chronic obstructive pulmonary disease with (acute) exacerbation Status: Acute Assessment and Plan: Patient presented with diffuse wheezing, felt to be consistent with COPD exacerbation. CXR and CTA with no acute cardiopulmonary disease. Received IV Solu-Medrol during admission with overall improvement, tapered down and will continue with p.o. prednisone to complete a 5 day course as an outpatient. Symptomatic improvement following scheduled bronchodilators. Continue with rescue inhaler home. Patient started on Symbicort maintenance inhaler. She will be referred to pulmonology as an outpatient for PFTs. (2) Hypoxia: Code(s): R09.02 - Hypoxemia Status: Acute Assessment and Plan: Secondary to above. O2 sats 88% on presentation. She required up to 2 L supplemental O2 during admission. Was able to be weaned to room air at rest. Home O2 eval performed on day of discharge. Patient requires no oxygen at rest and 2 L with activity. Outpatient pulmonology referral as above. (3) Hypertension: Code(s): I10 - Essential (primary) hypertension Status: Acute Assessment and Plan: Blood pressures remained stable. Continue with amlodipine and losartan (4) Tobacco abuse: Code(s): Z72.0 - Tobacco use Status: Acute Assessment and Plan: Patient reports she has cut down to half a pack a day. Discussed smoking cessation with the patient for 5 minutes. She is motivated to quit smoking. (5) Hyperlipidemia: Code(s): E78.5 - Hyperlipidemia, unspecified Status: Acute Assessment and Plan: Continue with atorvastatin DS: Summary Hospital Course Hospital Course: Date of admission: 06/04/2022 Date of discharge: 06/07/2022 Jen Guidry is a 66-year-old female with a history of hypertension, hyperlipidemia, tobacco abuse, and emphysema who presented to the emergency department on 06/04/2022 with complaints of shortness of breath and heart racing. On presentation to the ED, she was tachycardic at 114., hypoxic at 87% on room air, additional vital signs stable, WBC 17.7, additional laboratory workup unremarkable, troponin negative, CXR without acute cardiopulmonary disease, and CTA negative for pulmonary embolism with mild emphysema. Patient was admitted to the hospitalist service for further evaluation and management. Please see above for further details. She was treated with steroids and bronchodilators for COPD exacerbation. Shortness of breath improved. She required supplemental oxygen during admission will continue with 2 L of oxygen with activity at home. She will follow-up with pulmonology as an outpatient. Overall patient had significant improvement and respiratory status returned to baseline. She was feeling back to her usual state of health and was eager for discharge home. Discussed worrisome signs and symptoms for which to return and she was educated on her medications. She was discharged in hemodynamically stable condition on 06/07/2022 Time Spent with Patient Time attestation: Total time spent providing and/or coordinating discharge services: 45 minutes Time spent: Greater than 30 minutes Exam Narrative: General: Well-nourished, well-appearing 66-year-old female, sitting up in bed, comfortable, NARD Neuro: awake, alert and oriented x4, speech clear, no focal neuro deficits noted HEENMT: normocephalic, atraumatic, EOMI, sclerae anicteric Respiratory: clear to auscultation bilaterally without crackles, rhonchi, or wheezes, nonlabored breathing Cardio: Regular rate, regular rhythm with S1-S2 Abdomen: nondistended, normoactive bowel sounds, soft, nontender to palpation Extremities: no edema, erythema, or tenderness to palpation, DP pulses 2+ regulo
--- NOTE | 2022-06-07 14:01 | PC.NURSE ---
On 06/07/22, the license pending RN Jen Chaidez, provided care and completed [employer] documentation on this patient. I have reviewed the license pending prop cutter and agree with the findings.
== END 2022-06-07 13:59 | disposition home or self-care (01) ==
LOC: ANHED 13:40 → ANH2MED 16:27
PROVIDERS: General Practice; Nurse Practitioner; Admitting Provider Student in an Organized Health Care Education/Training Program; Emergency Provider Emergency Medicine; PCP Student in an Organized Health Care Education/Training Program; Visit Provider Physician Assistant
DX: J44.1 Chronic obstructive pulmonary disease with (acute) exacerbation (principal); R09.02 Hypoxemia; E78.5 Hyperlipidemia, unspecified; I10 Essential (primary) hypertension; R06.09 Other forms of dyspnea; Z20.822 Contact with and (suspected) exposure to COVID-19; R00.2 Palpitations; F17.210 Nicotine dependence, cigarettes, uncomplicated; R05.9 Cough, unspecified; F10.90 Alcohol use, unspecified, uncomplicated; D72.829 Elevated white blood cell count, unspecified; E78.6 Lipoprotein deficiency; Z79.51 Long term (current) use of inhaled steroids; Z79.899 Other long term (current) drug therapy
CPT/HCPCS: 36415; 36600; 71046; 71275; 80048; 80053; 82805; 83605; 83690; 83735; 83880; 84484; 85025; 85027; 85610; 85730; 87637; 93005; 94618; 94640; 94667; 96365; 96366; 96367; 96374; 96375; 96376; 99285; A9270; G0378; J0456; J0696; J1650; J2930; Q9967

== ENCOUNTER 2023-11-15 10:21 | Emergency (ER) | payer OTHER, SELFPAY ==
--- NOTE | 2023-11-15 10:32 | ED.URI ---
HPI - URI/Sore Throat General Chief Complaint: Upper Respiratory Infection Stated Complaint: Sinus Time Seen by Provider: 11/15/23 10:44 Source: patient, RN notes reviewed and old records reviewed Mode of arrival: ambulatory Limitations: no limitations History of Present Illness HPI Narrative: 68-year-old female presents to the [facility] with cough, sinus congestion. Patient denies chest pain, shortness of breath. Patient does have a history of COPD reports that her normal oxygen level is between 92 and 94. Denies fevers Patient with a history of emphysema, COPD Patient is a smoker Related Data Home Medications Medication Instructions Recorded Confirmed amlodipine 5 mg tablet 5 mg PO DAILY 10/30/19 11/15/23 atorvastatin 10 mg tablet 10 mg PO QPM 10/30/19 11/15/23 losartan 100 mg tablet 100 mg PO DAILY 10/30/19 11/15/23 albuterol sulfate 90 mcg/actuation 2 puff inhalation Q4-6H PRN 11/29/21 11/15/23 aerosol inhaler Shortness Of Breath celecoxib 200 mg capsule 200 mg PO BID 11/15/23 11/15/23 Allergies Allergy/AdvReac Type Severity Reaction Status Date / Time adhesive tape Allergy Mild TRANSPORE Verified 11/15/23 10:32 TAPE lisinopril Allergy Unknown Other Verified 11/15/23 10:32 procaine Allergy Unknown resistant Verified 11/15/23 10:32 Review of Systems Review of Systems: All systems reviewed & are unremarkable except as noted in HPI and below Constitutional: Constitutional: Reports no additional constitutional complaints Eyes: Eyes: Reports no additional eye complaints ENT: Reports as per HPI and Reports nasal congestion Cardiovascular: Cardiovascular: Reports no additional cardiovascular complaints, Denies chest pain and Denies dyspnea Respiratory: Respiratory: Reports no additional respiratory complaints, Denies chest congestion, Denies cough and Denies dyspnea Gastrointestinal: Gastrointestinal: Reports no additional gastrointestinal complaints, Denies abdominal pain, Denies nausea and Denies vomiting Musculoskeletal: Musculoskeletal: Reports no additional musculoskeletal complaints Integumentary/Breasts: Skin/Breast: Reports system reviewed and no additional complaints, except as docu Neurologic: Reports system reviewed and no additional complaints, except as documented Psychiatric: Psychiatric: Reports no additional psychiatric complaints Allergic/Immunologic: Allergic/Immunologic: Reports no additional allergic/immunologic complaints PMFSH Past Medical History Medical History Emphysema lung Hyperlipidemia Hypertension Hypolipidemia Hypoxia Tobacco abuse Surgical History Surgical History H/O section times 2 H/O: hysterectomy S/P right rotator cuff repair Family History Family History Father Cancer Mother Cancer Sibling Cancer Social History Social History Social History: 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 She told me that she smoked 4-5 cigarettes a day, however she told the nurse that she is down to half a pack a cigarettes a day. She has 2 children. Her is the durable power personal injury attorney for healthcare. Code status full code Smoking packs per day: 0.5 Smoking cigarettes per day: 10.0 Years smoked: 40 Smoking pack-years: 20.00 Smoking status: Current every day smoker Tobacco type: cigarettes Alcohol intake: current Drinks per week: 5 Substance use: never Substance use type: does not use Lack of Transportation: No Lack of Food: Never True Current Housing: I Have Housing Concerned About Future Housing: No Difficulty Paying Gas/Electric Bills: No Difficulty Paying for Meds: No Currently Unemployed: No Education: High School Diploma/GED Difficulty w/ Childcare or Family Care: No Spiritual
[2023-11-15 10:42] VITALS: BP 186/90; PULSE 102; RESP 20; TEMP 37.2; O2SAT 93
[2023-11-15 10:54] LABS: EDCOVIDSCREEN Negative (Negative); EDINFLUASCREEN Negative (Negative); EDINFLUBSCREEN Negative (Negative)
== END 2023-11-15 11:15 | disposition home or self-care (01) ==
PROVIDERS: Emergency Provider Nurse Practitioner; PCP Student in an Organized Health Care Education/Training Program
DX: J01.40 Acute pansinusitis, unspecified (principal); J44.9 Chronic obstructive pulmonary disease, unspecified; Z20.822 Contact with and (suspected) exposure to COVID-19; E78.5 Hyperlipidemia, unspecified; I10 Essential (primary) hypertension; F17.210 Nicotine dependence, cigarettes, uncomplicated
CPT/HCPCS: 87635; 87804; 99213; G0463